=== PATIENT | male | born 1930 | race Caucasian/White ===

== ENCOUNTER → 2016-06-20 | Outpatient (CLI) | payer MEDICARE, OTHER ==
--- NOTE | 2016-06-20 11:00 | CT ---
EXAM DESCRIPTION: Chest w/o Contrast CLINICAL HISTORY: SOLITARY NODULE OF LUNG COMPARISON: None. TECHNIQUE: Non contrast multidetector CT imaging of the chest. Multiplanar reconstructions were provided. FINDINGS: The inflammatory changes seen within the left lower lobe have resolved with only minimal scarring seen on today's exam. No new suspicious findings. No pleural disease noted. Cardiomegaly again noted with extensive coronary artery disease. Pacing device visualized. The left atrium is enlarged suggesting left heart dysfunction. The pulmonary artery is not enlarged. The upper abdomen is unremarkable. IMPRESSION: Resolution of the inflammatory masslike findings within the left lung base when compared to prior. No follow-up is needed for these findings. There is enlargement of the left atrium which measures 7 cm in diameter. This can be seen in setting of left heart dysfunction. Electronically signed by: Marcello Zavala MD 06/20/2016 11:00 AM CDT
== END | disposition home or self-care (01) ==
LOC: CT 09:54
PROVIDERS: ATTEND Internal Medicine
DX: R91.1 Solitary pulmonary nodule (principal)

== ENCOUNTER → 2016-08-07 | Outpatient (CLI) | payer MEDICARE, OTHER | END | disposition home or self-care (01) | LOC: GMAB 10:34 | PROVIDERS: ATTEND Family Medicine | DX: Z12.5 Encounter for screening for malignant neoplasm of prostate (principal); R53.83 Other fatigue | CPT/HCPCS: 84443; G0103 ==

== ENCOUNTER → 2016-09-27 | Outpatient (CLI) | payer MEDICARE, OTHER | END | disposition home or self-care (01) | LOC: GMAB 16:42 | PROVIDERS: ATTEND Family Medicine | DX: N39.0 Urinary tract infection, site not specified (principal); G47.51 Confusional arousals ==

== ENCOUNTER 2017-02-02 11:50 | Emergency (ER) | payer MEDICARE, OTHER ==
--- NOTE | 2017-02-02 13:04 | ED.PDOC ---
History of Present Illness - General Chief Complaint: Upper Extremity Injury Stated Complaint: R shoulder pain Time Seen by Provider: 02/02/17 12:51 Source: patient, RN notes reviewed, Vital Signs reviewed, family - Exam Limitations: no limitations - History of Present Illness Initial Comments: Patient comes in with right shoulder pain since last night. There was a rattlesnake on the porch and he had the dog on a leash. The dog jerked him and he fell. has given him 6 Tylenol since last night. Also, he does not want to move his shoulder. No numbness in his fingers. Denies any other injury. Occurred: yesterday Pain - Upper Extremity: severe: Shoulder, right Method of Injury: fell Improving Factors: immobilization Worsening Factors: movement Allergies/Adverse Reactions: Allergies Atorvastatin [From Lipitor] Allergy (Verified 11/29/15 11:49) Propoxyphene [From Darvocet-N] Allergy (Verified 11/29/15 11:49) Home Medications: Ambulatory Orders Amphetamine-Dextroamphetamine [Adderall 30 mg] 30 mg PO BID 09/05/15 Atenolol [Tenormin] 25 mg PO DAILY 09/05/15 Doxazosin Mesylate [Doxazosin] 4 mg PO BEDTIME 09/05/15 Finesteride 5 mg PO DAILY 09/05/15 Fluticasone Propionate (Nasal) [Flonase] 50 mcg NA DAILY 09/05/15 Gemfibrozil 1,200 mg PO DAILY 09/05/15 Multiple Vitamins W/ Minerals [Centrum Silver Ultra Mens] 1 tab PO DAILY Namzaric 28-10 mg 1 each PO BEDTIME 09/06/15 Valsartan [Diovan] 40 mg PO DAILY 11/02/15 Warfarin Sodium 7.5 mg PO DAILY 11/02/15 s-Gtosvclpsiie-Apgrkxgvwlaffia [Cerefolin Nac 6-2-600 mg] 1 tab PO DAILY Pantoprazole Tablet [Protonix] 40 mg PO ACBK 11/29/15 Review of Systems - Review of Systems Constitutional: States: no symptoms reported Respiratory: States: no symptoms reported Cardiology: States: no symptoms reported Musculoskeletal: States: see HPI, joint pain - R shoulder Skin: States: no symptoms reported Neurological: States: no symptoms reported. Denies: numbness, paresthesia, tingling All other Systems: No Change from Baseline Past Medical History (General) - Patient Medical History Hx Stroke: No Hx Dementia: Yes Hx Asthma: No Hx of COPD: No Hx Cardiac Disorders: Yes - Atrial fib Hx Congestive Heart Failure: No Hx Pacemaker: Yes Hx Hypertension: Yes Hx Thyroid Disease: No Hx Diabetes: No Hx Gastroesophageal Reflux: Yes Hx Renal Disease: No Hx Cancer: No Hx of HIV: No Hx Hepatitis C: No Hx MRSA: No - Vaccination History Hx Tetanus, Diphtheria Vaccination: No Hx Influenza Vaccination: Yes Hx Pneumococcal Vaccination: Yes - Social History Hx Tobacco Use: No Hx Chewing Tobacco Use: No Hx Alcohol Use: No Hx Substance Use: No Hx Substance Use Treatment: No Hx Depression: No Hx Physical Abuse: No Hx Emotional Abuse: No Hx Suspected Abuse: No Family Medical History - Family History Mother Family History: No Known Father Living Status: Age at (years of age): 56 Cause of : [place] Brother Living Status: Age at (years of age): 56 Cause of : [place] Physical Exam - Physical Exam General Appearance: Alert, Comfortable, No apparent distress, Well Developed, Well Groomed, Well Hydrated, Well Nourished Cardiovascular/Respiratory: no respiratory distress Shoulder Exam: asymmetry, bone tenderness, deformity - R shoulder - appears dislocated, limited ROM, pain Elbow/Forearm Exam: normal inspection, non-tender, no evidence of injury, normal ROM Wrist Exam: normal inspection, non-tender, no evidence of injury, normal ROM Hand Exam: non-tender, no evidence of injury, normal ROM, swelling - R hand - fingers Neuro/Tendon: normal sensation, normal motor functions, normal tendon functions , no evidence tendon injury Mental Status: alert, oriented x 3 Skin Exam: normal color, warm/dry Progress - Progress Progress: 02/02/17 16:00 Patient is awake and ready to go home No further shoulder pain Post reduction X-ray shows good location, no fracture. - EKG/XRAY/CT XRAY: R Shoulder: Anterior, inferior dislocation per Rad - Additional EKG/XRAY/Consults XRAY #2: R shoulder: post reduction - good alignment, no fracture per Rad Procedures - Joint Reduction right shoulder Conscious Sedation: Yes - TOY DESIGNER came and provided sedation Reduction Attempts: 2 Pre-Procedure NV Exam: Yes - normal Post Joint Reduction Film: joint reduced Progress: Patient is slowly waking up. Reports his shoulder feels much better. Placed in Sling Departure - Departure Clinical Impression: Dislocation of shoulder, anterior, right, closed Qualifiers: Encounter type: initial encounter Qualified Code(s): S43.014A - Anterior dislocation of right humerus, initial encounter Time of Disposition: 16:02 Disposition: Discharge to Home or Self Care Condition: Good Departure Forms: ED Discharge - Pt. Copy, Patient Portal Self Enrollment Instructions: DI for Shoulder Dislocation Diet: resume usual diet Activity: no pushing/pulling with affected limb Referrals: Morgan Pan MD [Primary Care Provider] - 1-2 Weeks Home Medications: Ambulatory Orders Amphetamine-Dextroamphetamine [Adderall 30 mg] 30 mg PO BID 09/05/15 Atenolol [Tenormin] 25 mg PO DAILY 09/05/15 Doxazosin Mesylate [Doxazosin] 4 mg PO BEDTIME 09/05/15 Finesteride 5 mg PO DAILY 09/05/15 Fluticasone Propionate (Nasal) [Flonase] 50 mcg NA DAILY 09/05/15 Gemfibrozil 1,200 mg PO DAILY 09/05/15 Multiple Vitamins W/ Minerals [Centrum Silver Ultra Mens] 1 tab PO DAILY Namzaric 28-10 mg 1 each PO BEDTIME 09/06/15 Valsartan [Diovan] 40 mg PO DAILY 11/02/15 Warfarin Sodium 7.5 mg PO DAILY 11/02/15 [id number]-Oryyrhoopudc-Tqsrypqildlimdi [Cerefolin Nac 6-2-600 mg] 1 tab PO DAILY Pantoprazole Tablet [Protonix] 40 mg PO ACBK 11/29/15
[2017-02-02 13:10] VITALS: TEMP 97.1
--- NOTE | 2017-02-02 13:15 | RAD ---
EXAM DESCRIPTION: Shoulder,Right 2 or More Views CLINICAL HISTORY: Pain s/p fall last night COMPARISON: None. IMPRESSION: 2 views of the right shoulder show anterior, inferior dislocation of the humeral head from the glenohumeral joint. No obvious fracture is identified although there is limited movement between internal and external rotation views. Recommend follow-up imaging post reduction. Left subclavian single lead transvenous cardiac pacemaker is partly visualized. Osseous structures are diffusely osteopenic. Electronically signed by: Bola Shaver MD 02/02/2017 1:14 PM CDT
[2017-02-02] MEDS ORDERED: HYDROmorphone HCL INJ 2 MG/ML VIAL IV ONE (13:40)
[2017-02-02] MEDS ORDERED: PROPOFOL 200 MG/20 ML VIAL IV ONE (14:40)
[2017-02-02] MEDS ORDERED: MIDAZOLAM INJ 2 MG/2 ML VIAL IV ONE (14:40)
[2017-02-02] MEDS ORDERED: fentaNYL CITRATE INJ 50 MCG/ML AMP IV ONE (14:40)
--- NOTE | 2017-02-02 14:59 | RAD ---
EXAM DESCRIPTION: Shoulder,Right 2 or More Views CLINICAL HISTORY: post-reduction COMPARISON: February 02, 2017 at 1259 hours. IMPRESSION: 2 views of the right shoulder were acquired status post glenohumeral joint reduction. No acute fractures demonstrated. Age-indeterminate Hill-Sachs deformity suspected posterior aspect of the proximal humeral head. The glenohumeral joint appears in near-anatomic alignment. No other significant change. Electronically signed by: Sánchez Ceballos MD 02/02/2017 2:57 PM CDT
[2017-02-02 15:16] VITALS: O2SAT 98
[2017-02-02 16:29] VITALS: BP 119/76
== END 2017-02-02 16:29 | disposition home or self-care (01) ==
LOC: ER 11:50
DX: S43.014A Anterior dislocation of right humerus, initial encounter (principal); I48.91 Unspecified atrial fibrillation; I10 Essential (primary) hypertension; F03.90 Unspecified dementia, unspecified severity, without behavioral disturbance, psychotic disturbance, mood disturbance, and anxiety; Z95.0 Presence of cardiac pacemaker; Z79.01 Long term (current) use of anticoagulants; Z79.899 Other long term (current) drug therapy; Z88.8 Allergy status to other drugs, medicaments and biological substances
CPT/HCPCS: 23650; 73030; 96374; 99156; 99285; J1170; J2250; J3010; J3490

== ENCOUNTER 2017-02-07 18:01 | Observation (INO) | payer MEDICARE, OTHER ==
[2017-02-07] MEDS ORDERED: PHYTONADIONE INJ 10 MG/ML AMP IM ONE (18:49)
[2017-02-07] MEDS ORDERED: SODIUM CHLORIDE 0.9% 1000ML 1,000 ML IVS ONE (19:11)
--- NOTE | 2017-02-07 19:25 | CT ---
EXAM: Head CLINICAL INDICATION: 87-year-old female with recurrent falls. On Coumadin. COMPARISON: Noncontrast CT brain 09/05/2015. TECHNIQUE: CT brain without contrast. This exam was performed according to our departmental dose optimization program which includes use of automated exposure control, adjustment of the mA and/or kV according to patient size and/or use of iterative reconstruction technique. FINDINGS: Multifocal regions of patchy hypoattenuation are present in a subcortical and periventricular deep white matter distribution, nonspecific; however, most likely represent small vessel ischemic disease, age indeterminate. Subcentimeter focus of hypoattenuation present within the LEFT basal ganglia similar in comparison to the previous examination suggesting sequela of prior lacunar infarction. The ventricles, and sulci are enlarged compatible with underlying volume loss. The villa-white matter differentiation is preserved. There is no mass effect, midline shift, intra- or extra-axial fluid collection/acute hemorrhage. The osseous structures are unremarkable. The paranasal sinuses and mastoid air cells are clear. IMPRESSION: 1. No acute intracranial abnormalities. Nonspecific white matter change most likely small vessel ischemic disease, age indeterminate. 2. CT is insensitive for early evaluation of acute stroke. If there is clinical concern for acute ischemia, an MRI may be considered. Electronically signed by: Daily Easley MD 02/07/2017 7:24 PM [employer] Workstation: [id number]
--- NOTE | 2017-02-07 19:26 | RAD ---
EXAM: Chest,1 View CLINICAL INDICATION: 87-year-old male with recurrent falls. TECHNIQUE: Single view, AP portable chest was obtained. COMPARISON: 11/29/2015 chest radiograph. FINDINGS: Stable cardiac and mediastinal silhouette. Heart size is normal. Atherosclerotic thoracic aorta. Pacemaker device overlies and obscures portions of the the LEFT hemithorax with leads intact at the level of the battery pack, stable in course and termination. Lungs are clear without focal opacity, pneumothorax or pleural effusions. The visualized bones are within normal limits of chest radiograph technique. If there is clinical concern for bone injury, dedicated rib series or CT chest is recommended. IMPRESSION: No acute cardiopulmonary abnormalities. Electronically signed by: Daily Easley MD 02/07/2017 7:25 PM NIGHT WORKER Workstation: [id number]
--- NOTE | 2017-02-07 19:27 | RAD ---
EXAM: Hip,Right 2 Views (accession [id number]), Pelvis (accession [id number]) CLINICAL INDICATION: 87-year-old male with fall and bruising. COMPARISON: None. TECHNIQUE: Single frontal view of the pelvis and two views of the RIGHT hip were obtained in AP and lateral projection. FINDINGS: Single frontal view of the pelvis reveals degenerative change of the lower lumbar spine. Mild degenerative change of the bilateral hips with mild femoral acetabular joint space narrowing and osteophyte formation. The midline sacrum is poorly visualized secondary to overlying bowel gas. Pelvic phleboliths. RIGHT hip: There is no fracture or dislocation. The joint spaces are preserved. No soft tissue abnormalities are seen. IMPRESSION: No acute radiographic abnormality. Electronically signed by: Daily Easley MD 02/07/2017 7:26 PM [facility] Workstation: [id number]
--- NOTE | 2017-02-07 19:28 | RAD ---
EXAM: Hip,Right 2 Views (accession [id number]), Pelvis (accession [id number]) CLINICAL INDICATION: 87-year-old male with fall and bruising. COMPARISON: None. TECHNIQUE: Single frontal view of the pelvis and two views of the RIGHT hip were obtained in AP and lateral projection. FINDINGS: Single frontal view of the pelvis reveals degenerative change of the lower lumbar spine. Mild degenerative change of the bilateral hips with mild femoral acetabular joint space narrowing and osteophyte formation. The midline sacrum is poorly visualized secondary to overlying bowel gas. Pelvic phleboliths. RIGHT hip: There is no fracture or dislocation. The joint spaces are preserved. No soft tissue abnormalities are seen. IMPRESSION: No acute radiographic abnormality. Electronically signed by: Daily Easley MD 02/07/2017 7:26 PM [facility] Workstation: [id number]
--- NOTE | 2017-02-07 19:58 | ED.PDOC ---
History of Present Illness - General Chief Complaint: Trauma Stated Complaint: falling Time Seen by Provider: 02/07/17 18:02 Source: patient, family Exam Limitations: no limitations - History of Present Illness Initial Comments: the patient is an 87-year-old male presenting to the emergency room secondary to multiple falls over the last week or 2. The patient was brought in by EMS after a fall when he was trying to get to the bathroom. The patient reports being a little sore everywhere. He does have a fairly large hematoma over his right hip that appears to be at least a couple days old. He was seen here on the third of this month for a dislocated right shoulder from a fall. Upon arrival by EMS his blood pressures were in the 80s over 50s and did respond well to a 250 cc bolus. The patient does have some significant dementia and is a poor historian. The patient also takes numerous medications that can drop his blood pressure. He is not having any headache. He does not think he hit his head. He has no neck pain. He still has pain in his right shoulder from previous dislocations. He is actually moving the right hip fairly well. I see no other lacerations. He does not seem to be having any back pain at this point. He is pleasantly demented. Timing/Duration: unsure Severity: moderate Improving Factors: nothing Worsening Factors: immobilization Associated Symptoms: malaise, weakness Allergies/Adverse Reactions: Allergies Atorvastatin [From Lipitor] Allergy (Verified 02/07/17 18:25) Propoxyphene [From Darvocet-N] Allergy (Verified 02/07/17 18:25) Home Medications: Ambulatory Orders Atenolol [Tenormin] 50 mg PO DAILY 09/05/15 Doxazosin Mesylate [Doxazosin] 4 mg PO BEDTIME 09/05/15 Finesteride 5 mg PO DAILY 09/05/15 Gemfibrozil 1,200 mg PO DAILY 09/05/15 Warfarin Sodium 7.5 mg PO DAILY 11/02/15 Divalproex Sodium ER [Depakote ER] 500 mg PO BID 02/07/17 Memantine HCl [Namenda] 10 mg PO BID 02/07/17 Quetiapine Fumarate [Seroquel] 25 mg PO DAILY 02/07/17 Quetiapine Fumarate [Seroquel] 50 mg PO BEDTIME 02/07/17 l-Ljkahtohnwed-Cyksextceagvhzh [Cerefolin Nac 6-2-600 mg] 1 tab PO DAILY Review of Systems - Review of Systems Constitutional: States: malaise, weakness EENTM: States: no symptoms reported Respiratory: States: no symptoms reported Cardiology: States: no symptoms reported Gastrointestinal/Abdominal: States: no symptoms reported Genitourinary: States: no symptoms reported Musculoskeletal: States: joint pain, muscle stiffness Skin: States: see HPI - bruised bruising Neurological: States: see HPI Endocrine: States: no symptoms reported Hematologic/Lymphatic: States: easy bruising All other Systems: No Change from Baseline Past Medical History (General) - Patient Medical History Hx Stroke: No Hx Dementia: Yes Hx Asthma: No Hx of COPD: No Hx Cardiac Disorders: Yes - Atrial fib Hx Congestive Heart Failure: No Hx Pacemaker: Yes Hx Hypertension: Yes Hx Thyroid Disease: No Hx Diabetes: No Hx Gastroesophageal Reflux: Yes Hx Renal Disease: No Hx Cancer: No Hx of HIV: No Hx Hepatitis C: No Hx MRSA: No - Vaccination History Hx Tetanus, Diphtheria Vaccination: No Hx Influenza Vaccination: Yes Hx Pneumococcal Vaccination: Yes Immunizations Up to Date: No - Social History Hx Tobacco Use: No Hx Chewing Tobacco Use: No Hx Alcohol Use: No Hx Substance Use: No Hx Substance Use Treatment: No Hx Depression: No Hx Physical Abuse: No Hx Emotional Abuse: No Hx Suspected Abuse: No Family Medical History - Family History Mother Family History: No Known Father Living Status: Age at (years of age): 56 Cause of : [place] Brother Living Status: Age at (years of age): 56 Cause of : [place] Physical Exam - Physical Exam General Appearance: Alert, Comfortable, No apparent distress Eye Exam: bilateral normal Ears, Nose, Throat: hearing grossly normal, normal ENT inspection, normal pharynx Neck: full range of motion, supple Respiratory: lungs clear, normal breath sounds, no respiratory distress, no accessory muscle use Cardiovascular/Chest: normal peripheral pulses, no edema, other - regular rate. A pacemaker rhythm on EKG. Peripheral Pulses: radial,right: 2+, radial,left: 2+, dorsalis pedis,right: 2+, dorsalis pedis,left: 2+ Gastrointestinal/Abdominal: non tender, soft Rectal Exam: deferred Back Exam: no CVA tenderness, no vertebral tenderness Extremity: normal range of motion, no pedal edema, no calf tenderness, normal capillary refill, other - significant bruising over the right hip. Discomfort with movement of the right shoulder. There is some swelling around the right shoulder as well. Neurologic: manager long term care II-XII nml as tested, alert, normal mood/affect - ryan pleasant Skin Exam: normal color - ith the exceptions as above Comments: Vital Signs - 24 hr 02/07/17 02/07/17 18:12 19:01 Temperature 97.9 F Pulse Rate [ 70 70 MONITOR] Respiratory 20 16 Rate Blood Pressure 101/56 112/52 [Left Arm] O2 Sat by Pulse 99 97 Oximetry Progress - Progress Progress: 02/07/17 20:00 the patient is an 87-year-old male with multiple recent falls likely related to hypotension which is possibly contributed to by multiple medications. The patient was given IV fluid bolus which has helped his blood pressures. The patient does have significant soreness from his previous falls. He will be admitted here overnight for recheck of his INR as well as H&H in the morning. He is supratherapeutic on his INR and did receive vitamin K. He is to be bedbound tonight. Physical therapy can assess him in the morning for functionality. His medications can be reviewed to see which medications are most necessary as multiple indications are likely contributing to his falls. Admit for further monitoring. I'm going to go ahead and repeat his shoulder x- ray to make sure he did not injure it again with a fall today. - Results/Orders Results/Orders: Laboratory Tests 02/07/17 02/07/17 02/07/17 18:23 18:23 18:23 WBC 5.6 RBC 3.82 L Hgb 11.3 L Hct 33.0 L MCV 86.3 MCH 29.5 MCHC 34.2 RDW 15.4 H Plt Count 140 MPV 8.5 Absolute Neuts (auto) 3.80 Absolute Lymphs (auto) 0.90 L Absolute Monos (auto) 0.60 Absolute Eos (auto) 0.30 Absolute Basos (auto) 0.00 Neutrophils % 67.3 Lymphocytes % 15.9 L Monocytes % 10.1 H Eosinophils % 6.0 H Basophils % 0.7 PT 102.6 H* INR 9.280 H* PTT (SP) 68.8 H Sodium 136 Potassium 4.4 Chloride 102 Carbon Dioxide 29 Anion Gap 9.4 L BUN 23 H Creatinine 1.23 BUN/Creatinine Ratio 18.7 Random Glucose 106 H Serum Osmolality 276.1 Calcium 8.7 Magnesium 2.0 Total Bilirubin 0.8 AST 22 ALT 15 Alkaline Phosphatase 64 Creatine Kinase 54 CK-MB (CK-2) 1.1 CK-MB (CK-2) % Not Reportable Troponin I 0.02 B-Natriuretic Peptide 325.0 H* Serum Total Protein 5.8 L Albumin 3.1 L Globulin 2.7 Albumin/Globulin Ratio 1.1 TSH 2.89 x-ray of the chest, right hip, pelvis show no evidence of acute fracture or dislocation. CT scan of the head shows no evidence of trauma or intracranial hemorrhage. EKG shows a ventricularly paced rhythm at 70 bpm. - EKG/XRAY/CT CT Ordered: No Departure - Departure Clinical Impression: Recurrent falls while walking, Hypercoagulable state, secondary Hypotension Qualifiers: Hypotension type: unspecified hypotension type Qualified Code(s): I95.9 - Hypotension, unspecified Disposition: Admit Patient Referrals: Morgan Pan MD [Primary Care Provider] - 1-2 Weeks Home Medications: Ambulatory Orders Atenolol [Tenormin] 50 mg PO DAILY 09/05/15 Doxazosin Mesylate [Doxazosin] 4 mg PO BEDTIME 09/05/15 Finesteride 5 mg PO DAILY 09/05/15 Gemfibrozil 1,200 mg PO DAILY 09/05/15 Warfarin Sodium 7.5 mg PO DAILY 11/02/15 Divalproex Sodium ER [Depakote ER] 500 mg PO BID 02/07/17 Memantine HCl [Namenda] 10 mg PO BID 02/07/17 Quetiapine Fumarate [Seroquel] 25 mg PO DAILY 02/07/17 Quetiapine Fumarate [Seroquel] 50 mg PO BEDTIME 02/07/17 z-Pddpzozbydoo-Rlqbfteeaosmhnm [Cerefolin Nac 6-2-600 mg] 1 tab PO DAILY Decision To Admit - Decistion To Admit Decision to Admit Reason: Accidental Injury Decision to Admit Date: 02/07/17 Decision to Admit Time: 20:02
--- NOTE | 2017-02-07 20:16 | HP ---
SUPERVISING PHYSICIAN: Darinel Zapata MD CHIEF COMPLAINT: Multiple falls after trauma. HISTORY OF PRESENT ILLNESS: This is an 87-year-old male patient who lives in [place], [place]. He was outside on Sunday evening with his and they found a rattlesnake. He was trying to hold his [place] back while they were attempting to kill the snake and the [place] caused him to fall onto his right shoulder and his right hip. He was in quite a bit of pain that night and the pain became so intense that on Sunday he came to the Emergency Room. He had a right shoulder separation. He was appropriately sedated and had a reduction done in the Emergency Room and sent home. Since Sunday evening, his said he has had multiple episodes of becoming quite weak when he stands up and she can remember about 3 incidences. He has never lost consciousness and he has never actually fallen because she has been assisting him up, but he has these syncopal type episodes, so she brought him to the Emergency Room. In the Emergency Room, a head CT was performed and showed no acute intracranial abnormalities and some small vessel ischemic disease. He had a hip x-ray that showed no acute radiographic abnormalities. His chest x-ray showed no acute cardiopulmonary abnormalities. His pelvic x-ray showed no acute radiographic abnormalities. His right shoulder x-ray showed no acute fracture or dislocation , but mild degenerative changes in the glenohumeral and acromioclavicular joints. His lab work was done and WBCs were 5.6 with hemoglobin 11.3, hematocrit 33. Platelet count 140. Chemistries were basically within normal limits with the exception of his BUN was slightly high at 23 and glucose was 106. BNP 325. PT was 102.6 with an INR of 9.28. He was given 10 mg of vitamin K in the Emergency Room. He was also found to have a very large hematoma that was probably from Sunday night on his right lateral hip that started at the mid lateral hip all the way to mid lateral thigh. I was called for admission. PAST MEDICAL HISTORY: 1. Atrial fibrillation. 2. Hyperlipidemia. 3. Colonic polyps. 4. Osteoarthritis. 5. Dementia. PAST SURGICAL HISTORY: 1. Right knee replacement. 2. Colonoscopy. 3. Pacemaker insertion. 4. Hernia repair times 2. OUTPATIENT MEDICATIONS: Per the EMR and awaiting verification. ALLERGIES: DARVOCET, LIPITOR. FAMILY HISTORY: His father of a myocardial infarction at age 56. His mother at age 75 of unknown causes. His sisters have coronary artery disease. SOCIAL HISTORY: He is . He has three children. He lives in [place]. He denies any ETOH, tobacco or illicit drug use. REVIEW OF SYSTEMS: GENERAL: Negative for fever, fatigue or weight changes. HEENT: Negative for sinus symptoms, ear pain, vision changes or sore throat. RESPIRATORY: Negative for wheezing, coughing or shortness of breath. CARDIAC: Negative for chest pain, palpitations or tachycardia. GASTROINTESTINAL: Negative for nausea, vomiting, diarrhea, constipation or abdominal pain. GENITOURINARY: Negative for hematuria, dysuria or polyuria. MUSCULOSKELETAL: As per history of present illness. NEUROLOGIC: Positive for weakness and syncope. Negative for headache or seizures. PHYSICAL EXAMINATION: VITAL SIGNS: Afebrile. Heart rate 70. Blood pressure 101/56. Respiratory rate 20. O2 saturation 99% on room air. GENERAL: This is an 87-year-old male patient who is lying in his hospital bed. He is in no acute distress. HEENT: Normocephalic, atraumatic. Pupils are equal and reactive. Oropharynx is clear. Oral mucous membranes are moist. NECK: Supple without mass. No discernible jugular venous distention. RESPIRATORY: Clear to auscultation bilaterally. CARDIOVASCULAR: Slightly irregular rhythm, regular rate. ABDOMEN: Soft, nondistended, nontender. Bowel sounds are positive. EXTREMITIES: He has a large hematoma to the right lateral thigh as well as a yellowish ecchymotic area to the right upper arm. Bilateral pedal pulses are palpable at +2 and there is no pedal edema. NEUROLOGIC: Awake, alert and oriented times three, although he does have some dementia and his says he is at baseline. LABORATORY: Labs and films are as per history of present illness. ASSESSMENT: 1. Recent same level fall with right shoulder separation and subsequent reduction in the Emergency Room on Sunday. 2. Three syncopal episodes since initial fall with no loss of consciousness of mental status changes. 3. Supratherapeutic INR. 4. Dementia. 5. History of atrial fibrillation. 6. Hyperlipidemia. PLAN: We will place the patient in observation. I will repeat labs in the morning. He received 10 mg of vitamin K in the Emergency Room, so I will hold his Coumadin and we will recheck his PT/INR in the morning. He is on the shelter monitor. We may need to adjust some of his medications as he gets 100 mg of Seroquel at night as well as Depakote ER 500 mg b.i.d. He gets the Depakote for his dementia. Dr. Moran is his neurologist in [place]. I have restarted part of his medications, but again we may need to adjust some of those as they may be contributing to his falls, although he did not have falls prior to the initial fall on Sunday. His BNP is slightly elevated, but his lungs are clear and there is no shortness of breath. He may have some slight dehydration because his BUN is slightly elevated, but at this point I will hold on giving him any fluids. I have also consulted physical therapy to make sure he is safe to go home and also to evaluate the need for outpatient physical therapy due to his recent falls. He is on Protonix for ulcer prophylaxis and SCDs for DVT prophylaxis. Hopefully, he can be discharged in the day or so with close followup with Dr. Moran as well as Dr. Pan. Dr. Zapata is the collaborating physician and available for consultation. #[id number] [facility]
[2017-02-07] MEDS ORDERED: SODIUM CHLORIDE 0.9% (FLUSH) 10 ML SYG IV PRN (20:50)
[2017-02-07] MEDS ORDERED: IV SET AND CAP CHANGE INJ INJ SCH (21:00)
--- NOTE | 2017-02-07 21:03 | PCM.CORE ---
Physician DVT/VTE - Contraindications Medication Contraindication: Medical Contraindication - Nurse DVT Assessment & Total Each Risk Factor Represents 3 Points: Age over 75 years Each Risk Factor Represents 1 Point: Medical PT at Bed Rest DVT Assessment Score: 4 - 5 or more Very High Risk Treatments: Early Ambulation *, Sequential Compression Device
--- NOTE | 2017-02-07 21:08 | RAD ---
Examination: XR SHOULDER 2 OR MORE VIEWS dated 02/07/2017 8:03 PM HAND LAUNDERER History: recurrent fall after recent dislocation/reduction Comparison: 02/02/2017 Technique: Two views of the right shoulder FINDINGS AND IMPRESSION: There is no acute fracture or dislocation. Mild degenerative changes of the acromioclavicular and glenohumeral joints. Right apical opacification is positional/technical, additionally right lung apex is normal on 02/02/2017 exam. Electronically signed by: Spenser Small MD 02/07/2017 9:06 PM HAND LAUNDERER
[2017-02-07] MEDS ORDERED: PANTOPRAZOLE SODIUM IV 40 MG VIAL IV SCH (21:30)
[2017-02-07] MEDS ORDERED: QUEtiapine FUMARATE 25 MG TAB PO ONE (22:15)
[2017-02-07] MEDS: MEMANTINE 10 MG TAB PO SCH (22:23)
[2017-02-07] MEDS: ACETAMINOPHEN 325 MG TAB PO PRN (22:32)
[2017-02-08] MEDS ORDERED: DOXAZOSIN MESYLATE 2 MG TAB ONE (08:57)
[2017-02-08] MEDS ORDERED: FINASTERIDE 5 MG TAB ONE (08:57)
[2017-02-08] MEDS ORDERED: FINASTERIDE 5 MG TAB PO SCH (09:00)
[2017-02-08] MEDS ORDERED: DOXAZOSIN MESYLATE 2 MG TAB PO SCH (09:00)
[2017-02-08] MEDS: MEMANTINE 10 MG TAB PO SCH (09:17)
[2017-02-08 12:40] VITALS: TEMP 96.7
[2017-02-08 15:26] VITALS: BP 96/57
[2017-02-08] MEDS ORDERED: PANTOPRAZOLE SODIUM TAB 40 MG PO SCH (16:30)
[2017-02-08] MEDS ORDERED: INFLUENZA VIRUS VACC (ADULT) 0.5 ML SYG IM ONE ×2 (17:05→17:13)
[2017-02-08 17:54] VITALS: O2SAT 92
[2017-02-08] MEDS: ACETAMINOPHEN 325 MG TAB PO PRN (17:56)
[2017-02-08] MEDS ORDERED: GEMFIBROZIL 600 MG TAB PO SCH (21:00)
[2017-02-08] MEDS ORDERED: DIVALPROEX SODIUM ER 500 MG TAB PO SCH (21:00)
[2017-02-08] MEDS ORDERED: SODIUM CHLORIDE 0.9% (FLUSH) 10 ML SYG IV SCH (21:00)
[2017-02-08] MEDS ORDERED: QUEtiapine FUMARATE 100 MG TAB PO SCH (21:00)
[2017-02-09] MEDS ORDERED: ATENOLOL 25 MG TAB PO SCH (09:00)
== END 2017-02-08 17:58 ==
LOC: ER 18:01 → MS 20:15
PROVIDERS: ADMIT Nurse Practitioner Acute Care; ATTEND Nurse Practitioner Family
DX: R55 Syncope and collapse (principal); R79.1 Abnormal coagulation profile; F03.90 Unspecified dementia, unspecified severity, without behavioral disturbance, psychotic disturbance, mood disturbance, and anxiety; I48.91 Unspecified atrial fibrillation; E78.5 Hyperlipidemia, unspecified; R53.1 Weakness; S43.004D Unspecified dislocation of right shoulder joint, subsequent encounter; W18.39XD Other fall on same level, subsequent encounter; M25.551 Pain in right hip; M19.90 Unspecified osteoarthritis, unspecified site; Z23 Encounter for immunization; Z95.0 Presence of cardiac pacemaker; Z79.01 Long term (current) use of anticoagulants; Z79.899 Other long term (current) drug therapy; Z88.5 Allergy status to narcotic agent; Z88.8 Allergy status to other drugs, medicaments and biological substances; Z96.651 Presence of right artificial knee joint; Z82.49 Family history of ischemic heart disease and other diseases of the circulatory system; W18.39XA Other fall on same level, initial encounter; Y92.008 Other place in unspecified non-institutional (private) residence as the place of occurrence of the external cause
CPT/HCPCS: 36415 ×2; 70450; 71010; 72170; 73030; 73502; 80053 ×2; 81001; 82550; 82553; 83735; 83880; 84443; 84484; 85025 ×2; 85610 ×2; 85730; 90674; 93005; 94760 ×5; 96361; 96372; 96374; 97162; 97530; 99284; G0008; G8978; G8979; G8980; J3430; J7030

== ENCOUNTER → 2017-07-02 | Outpatient (CLI) | payer MEDICARE, OTHER ==
--- NOTE | 2017-07-02 11:16 | RAD ---
EXAM DESCRIPTION: Knee,Left Complete CLINICAL HISTORY: 87 years, Male, PAIN COMPARISON: None TECHNIQUE: Four views of the left knee FINDINGS: Osteopenia with severe advanced bone on bone degenerative joint disease medial joint compartment of the left knee is present. Very small amount of joint fluid is evident on the lateral view. The lateral joint compartment and patellofemoral compartment are better preserved. Vascular calcification is noted. No fracture or dislocation evident. IMPRESSION: 1. 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 Electronically signed by: Darinel Guerra MD 07/02/2017 11:14 AM CDT
--- NOTE | 2017-07-02 11:19 | RAD ---
EXAM DESCRIPTION: Pelvis CLINICAL HISTORY: 87 years Male, PAIN COMPARISON: February 07, 2017 FINDINGS: The bony pelvis appears intact with mild degenerative arthropathy involving each hip with preserved joint space. No fracture or dislocation is seen. No occult fracture of the right or left hip or disruption of the SI joints noted. Symphysis pubis is intact. Bilateral pelvic phleboliths and a small normal bladder are noted. IMPRESSION: Stable pelvis with no acute injury or interval change. Electronically signed by: Darinel Guerra MD 07/02/2017 11:17 AM CDT
== END ==
LOC: RAD 08:39
PROVIDERS: ATTEND Orthopaedic Surgery
DX: M25.562 Pain in left knee (principal); M25.552 Pain in left hip

== ENCOUNTER 2017-12-29 20:33 | Inpatient (IN) | payer MEDICARE, OTHER ==
[2017-12-29] MEDS ORDERED: SODIUM CHLORIDE 0.9% 1000ML 1,000 ML IVS ONE (20:49)
[2017-12-29] MEDS ORDERED: ACETAMINOPHEN 500 MG TAB PO ONE (20:49)
--- NOTE | 2017-12-29 20:57 | ED.PDOC ---
History of Present Illness - General Chief Complaint: Fever Stated Complaint: fever since yesterday Time Seen by Provider: 12/29/17 20:51 Source: RN notes reviewed, family Exam Limitations: physical impairment - patient has dementia history per and daughter - History of Present Illness Initial Comments: patient comes in today for fever to 101.5 yesterday and today 103.4. Patient has dementia and so although he is normally confused he appears more so over the past 24 hours. He's had no cough, congestion, and denies sore throat. However, on the right over here noted that he did have a hoarse gravelly voice. Patient has no nausea, emesis, or abdominal pain. He denies any dysuria. His does state that he has not been drinking well and she often has a difficult time keeping him from becoming dehydrated. Patient is on eloquent S for atrial fibrillation and so often does not take NSAIDs. However, they did give him 1 Advil last night for his fever. No one has been sick around him. He has not yet received his flu shot for the year. Patient is up- to-date on his pneumonia vaccine. Patient has a past medical history of Lewy body dementia, atrial fibrillation, and hypertension. Patient denies headache, neck pain, or vision change. He can answer questions but is keeping his eyes closed in the bed and seems ill. Timing/Duration: yesterday Fever Severity/Quality: greater than 102 F Fever Therapy FARM HELPER: Ibuprofen - 200 mg last night Associated Symptoms: confusion, weakness Review of Systems - Review of Systems Review of Systems: 12/29/17 20:57 per , patient denies all pain and difficulty Constitutional: States: chills, fever, malaise EENTM: States: no symptoms reported. Denies: eye pain, ear pain, nose pain, nose congestion, throat pain Respiratory: States: no symptoms reported. Denies: cough, short of breath, wheezing Cardiology: States: no symptoms reported. Denies: chest pain, edema, palpitations Gastrointestinal/Abdominal: States: no symptoms reported. Denies: abdominal pain, diarrhea, nausea, vomiting Genitourinary: States: no symptoms reported. Denies: discharge, dysuria, frequency Musculoskeletal: States: no symptoms reported Skin: States: no symptoms reported Neurological: States: see HPI Past Medical History (General) - Patient Medical History Hx Seizures: No Hx Stroke: No Hx Dementia: Yes Hx Asthma: No Hx of COPD: No Hx Cardiac Disorders: Yes - Atrial fib Hx Congestive Heart Failure: No Hx Pacemaker: Yes Hx Hypertension: No Hx Thyroid Disease: No Hx Diabetes: No Hx Gastroesophageal Reflux: Yes Hx Renal Disease: No Hx Cancer: No Hx of HIV: No Hx Hepatitis C: No Hx MRSA: No - Vaccination History Hx Tetanus, Diphtheria Vaccination: No Hx Influenza Vaccination: Yes Hx Pneumococcal Vaccination: Yes - Social History Hx Tobacco Use: No Hx Chewing Tobacco Use: No Hx Alcohol Use: No Hx Substance Use: No Hx Substance Use Treatment: No Hx Depression: No Hx Physical Abuse: No Hx Emotional Abuse: No Hx Suspected Abuse: No Family Medical History - Family History Mother Family History: No Known Father Living Status: Age at (years of age): 56 Cause of : [place] Brother Living Status: Age at (years of age): 56 Cause of : [place] Physical Exam - Physical Exam General Appearance: Comfortable, Frail, Ill Appearing Eye Exam: bilateral normal ENT Exam: normal ENT inspection, hearing grossly normal, TMs normal, pharynx normal Neck: non-tender, full range of motion, supple, normal inspection Respiratory: chest non-tender, lungs clear, normal breath sounds, no respiratory distress Cardiovascular/Chest: normal peripheral pulses, regular rate, rhythm, no edema, no gallop, no murmur Gastrointestinal/Abdominal: normal bowel sounds, non tender, soft Extremity: normal range of motion, non-tender, normal inspection 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 All workup thus far is fairly normal with the exception of some possible atelectasis on chest x-ray. Although he is asymptomatic he does have advanced dementia and that doesn't out the pitcher considerably. We've talked to his family and we decided to have him admitted 12/29/17 21:55 - Results/Orders Results/Orders: 12/29/17 20:46 BLOOD CULTURE Stat 12/29/17 20:52 STREP A SCREEN CULTURE Stat 12/29/17 21:20 Catheter:Straight .ONCE 12/29/17 21:47 cefTRIAXone SODIUM [Rocephin] 2 gm Sodium Chl 0.9% 100Ml Mini-Bag [NS 100ml MINI-BAG+] 100 ml IVPB ONCE Laboratory Results WBC 6.9 K/mm3 (4.8-10.8) 12/29/17 20:46 RBC 5.32 M/mm3 (4.70-6.10) 12/29/17 20:46 Hgb 15.9 gm/dL (14.0-18.0) 12/29/17 20:46 Hct 47.3 % (42.0-52.0) 12/29/17 20:46 MCV 88.9 fl (80.0-94.0) 12/29/17 20:46 MCH 29.8 pg (27.0-31.0) 12/29/17 20:46 MCHC 33.7 g/dL (33.0-37.0) 12/29/17 20:46 RDW 15.1 % (11.5-14.5) H 12/29/17 20:46 Plt Count 107 K/mm3 (130-400) L 12/29/17 20:46 MPV 9.0 fl (7.40-10.4) 12/29/17 20:46 Absolute Neuts (auto) 5.60 K/uL (1.8-6.8) 12/29/17 20:46 Absolute Lymphs (auto) 0.60 K/uL (1.0-3.4) L 12/29/17 20:46 Absolute Monos (auto) 0.60 K/uL (0.2-0.8) 12/29/17 20:46 Absolute Eos (auto) 0.00 K/uL (0.0-0.4) 12/29/17 20:46 Absolute Basos (auto) 0.00 K/uL (0.0-0.1) 12/29/17 20:46 Neutrophils % 81.3 % (42.0-78.0) H 12/29/17 20:46 Lymphocytes % 8.8 % (20.0-50.0) L 12/29/17 20:46 Monocytes % 8.7 % (2.0-9.0) 12/29/17 20:46 Eosinophils % 0.5 % (1.0-5.0) L 12/29/17 20:46 Basophils % 0.7 % (0.0-2.0) 12/29/17 20:46 Sodium 139 mmol/L (135-145) 12/29/17 20:46 Potassium 4.2 mmol/L (3.6-5.0) 12/29/17 20:46 Chloride 103 mmol/L (101-111) 12/29/17 20:46 Carbon Dioxide 27 mmol/L (21-31) 12/29/17 20:46 Anion Gap 13.2 (12-18) 12/29/17 20:46 BUN 32 mg/dL (7-18) H 12/29/17 20:46 Creatinine 1.42 mg/dL (0.6-1.3) H 12/29/17 20:46 BUN/Creatinine Ratio 22.5 (10-20) H 12/29/17 20:46 Random Glucose 125 mg/dL (70-105) H 12/29/17 20:46 Serum Osmolality 285.9 mOsm/L (275-295) 12/29/17 20:46 Lactic Acid 1.5 mmol/L (0.5-2.2) 12/29/17 20:46 Calcium 9.3 mg/dL (8.4-10.2) 12/29/17 20:46 Total Bilirubin 1.4 mg/dL (0.2-1.0) H 12/29/17 20:46 AST 32 IU/L (10-42) 12/29/17 20:46 ALT 23 IU/L (10-60) 12/29/17 20:46 Alkaline Phosphatase 69 IU/L (42-121) 12/29/17 20:46 Serum Total Protein 7.4 gm/dL (6.4-8.2) 12/29/17 20:46 Albumin 4.0 g/dl (3.2-5.5) 12/29/17 20:46 Globulin 3.4 gm/dL (2.3-3.5) 12/29/17 20:46 Albumin/Globulin Ratio 1.2 (1.1-1.9) 12/29/17 20:46 Urine Color Yellow (Yellow) 12/29/17 21:17 Urine Appearance Clear (Clear) 12/29/17 21:17 Urine pH 5.5 (4.5-7.8) 12/29/17 21:17 Ur Specific [place] 1.020 (1.005-1.030) 12/29/17 21:17 Urine Protein Negative mg/dL 12/29/17 21:17 Urine Glucose (UA) Negative mg/dL (Negative) 12/29/17 21:17 Urine Ketones Trace mg/dL (NEGATIVE) 12/29/17 21:17 Urine Blood Trace-intact (Negative) H 12/29/17 21:17 Urine Nitrite Negative 12/29/17 21:17 Urine Bilirubin Negative (NEGATIVE) 12/29/17 21:17 Urine Urobilinogen 1.0 mg/dL (0.2-1.0) 12/29/17 21:17 Ur Leukocyte Esterase Negative (Negative) 12/29/17 21:17 Urine RBC 5-10 /hpf H 12/29/17 21:17 Urine WBC 0-1 /hpf 12/29/17 21:17 Ur Epithelial Cells 0 /hpf 12/29/17 21:17 Urine Bacteria 0 12/29/17 21:17 Group A Strep Rapid Negative (NEGATIVE) 12/29/17 20:52 Departure - Departure Clinical Impression: Fever in adult, Dehydration Disposition: Admit Patient Condition: Fair Departure Forms: ED Discharge - Pt. Copy, Patient Portal Self Enrollment Referrals: Morgan Pan MD [Primary Care Provider] - 1-2 Weeks Home Medications: Ambulatory Orders Atenolol [Tenormin] 50 mg PO DAILY 09/05/15 Doxazosin Mesylate [Doxazosin] 4 mg PO DAILY 09/05/15 Finesteride 5 mg PO DAILY 09/05/15 Gemfibrozil 1,200 mg PO BEDTIME 09/05/15 Divalproex Sodium ER [Depakote ER] 500 mg PO BID 02/07/17 Memantine HCl [Namenda] 10 mg PO BID 02/07/17 Quetiapine Fumarate [Seroquel] 100 mg PO BEDTIME 02/07/17 [id number] [Cerefolin Nac 6-2-600 mg] 1 tab PO DAILY Warfarin Sodium 5 mg PO TH #0 02/08/17 Warfarin Sodium 7.5 mg PO SUMOTUWEFRSA #0 02/08/17
--- NOTE | 2017-12-29 21:35 | RAD ---
EXAM DESCRIPTION: Chest,1 View CLINICAL HISTORY: fever, generalized weakness COMPARISON: Chest radiograph dated February 07, 2017 FINDINGS: Single upright portable frontal view the chest. Redemonstration of single lead left chest cardiac pacemaker in position. Calcific atherosclerosis of the thoracic aorta. Cardiac silhouette shows cardiomegaly. Pulmonary vascularity is within normal limits. Subtle hazy opacities in the bilateral lung bases, right greater than left, may represent atelectasis versus infiltrate. Costophrenic angles are sharp. No pneumothorax. Visualized osseous structures show no destructive lesions. IMPRESSION: 1. Subtle hazy opacities in the bilateral lung bases, right greater than left, may represent atelectasis versus infiltrate. 2. Cardiomegaly without congestive heart failure. Electronically signed by: Derek Anaya MD 12/29/2017 9:34 PM CDT
[2017-12-29] MEDS ORDERED: IBUPROFEN 200 MG TAB PO ONE (21:40)
[2017-12-29] MEDS ORDERED: cefTRIAXone SODIUM 2 GM in SODIUM CHL 0.9% 100ML MINI-BAG 100 ML IVPB ONE (21:47)
[2017-12-29] MEDS ORDERED: SODIUM CHL 0.9% 100ML MINI-BAG 100 ML IVPB ONE (22:04)
--- NOTE | 2017-12-29 22:35 | HP ---
SUPERVISING PHYSICIAN: Gera Nathan MD CHIEF COMPLAINT: Fever, chills. HISTORY OF PRESENT ILLNESS: Mr. Tejada is an 87 year-old male patient who presented to the Emergency Room today with a complaint of fever. His noted that he had been running a fever since yesterday of 101.5 and on admission it was noted his temperature was 103.4. The patient does have a history of dementia but is very pleasant and his reports that he is normally confused but she notes over the last 24 hours he has been increasingly more confused, especially with the fevers. He denies having any cough or other complaints. His also notes he has not been drinking much as in fluids and she has had difficulty keeping him hydrated. The patient has a history of atrial fibrillation and is on Eliquis. He did take one Advil last night for his fever which did improve and they both deny any ill contacts and have not received their flu shot for the year. Review of his past medical history notes he does have Lewy body dementia, atrial fibrillation and hypertension but was denying any headache, neck pain or vision changes. Laboratory studies on admission showed a normal white count of 6,900 but a left shift. Chemistries showed increased creatinine of 1.42 with a BUN of 32. All electrolytes were normal. Lactic acid 1.5. Liver functions were essentially within normal limits. Urinalysis just showed a trace intact blood with 5 to 10 RBCs seen on exam with no bacteria or WBCs noted. He had a group-H strep and an influenza A-B by PCR which all 3 were negative. A chest x-ray, single-view, was completed in the Emergency Room and per radiology interpretation showed hazy opacities in the bilateral lung bases, right greater than left which could represent atelectasis versus infiltrate. There was note of cardiomegaly but no congestive heart failure. Dr. Noguera, Emergency Room physician, requested the patient be admitted with concerns for developing community acquired pneumonia with a fever and given his advanced age and comorbidities. The patient is now going to be admitted to the medical/surgical floor in stable condition at time of admission. PAST MEDICAL HISTORY: 1. Atrial fibrillation on Eliquis. 2. Hyperlipidemia. 3. Osteoarthritis. 4. Lewy Body Dementia. 5. Hypertension. PAST SURGICAL HISTORY: 1. Total right knee replacement. 2. Multiple colonoscopies. 3. Pacemaker insertion. 4. Hernia repair times 2. HOME MEDICATIONS: 1. Eliquis 5 mg b.i.d. 2. Tenormin 25 mg daily. 3. Depakote 500 mg b.i.d. 4. Seroquel 100 mg at bedtime. 5. Memantine 10 mg b.i.d. ALLERGIES: ATORVASTATIN AND PROPOXYPHENE FAMILY HISTORY: His father of a myocardial infarction at age 56. His mother at age 75 of unknown causes. His sisters have coronary artery disease. SOCIAL HISTORY: The patient lives in [place], [place]. 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 He is . He has three children. He denies any alcohol, tobacco or illicit drug use. REVIEW OF SYSTEMS: CONSTITUTIONAL: Patient had dementia and is denying any significant complaints but is noting multiple complaints with review of systems probably from her but noted for fevers, chills and general malaise. HEENT: She denied he had any ear pain, sore throat, nasal congestion. RESPIRATORY: Denied any significant cough, shortness of breath or wheezing. CARDIAC: Denies chest pain, palpitations or edema. GASTROINTESTINAL: Denied abdominal pain, nausea, vomiting. GENITOURINARY: Denied hematuria, dysuria or polyuria or other urinary symptoms. NEUROLOGIC: As noted in history of present illness, Lewy Body Dementia with confusion more so from baseline during fever but once fever is gone, she reports that his mentation is more at baseline. She denies any seizures, syncopal episodes, ataxia, just generalized weakness. PHYSICAL EXAMINATION: VITAL SIGNS: Temperature on admission was 103.6, pulse 107, blood pressure 149/ 79, respirations 20, saturation 96% on room air. Admission weight 86. kg. GENERAL: On admission to the medical/surgical floor, the patient is resting comfortably, very pleasant, appears to be in no acute distress. He is well- nourished, mildly dehydrated. His is at bedside. HEENT: Tympanic membranes clear bilaterally with oral mucosa showing to be pink, moist but no lesions. NECK: Supple, non-tender, full range of motion. No jugular venous distention. CHEST: Lung sounds fairly clear but diminished towards the bases with no obvious wheezing at time of admission, no rhonchi. CARDIOVASCULAR: Slightly irregular rate and rhythm with 3/6 systolic murmur. ABDOMEN: Soft, non-tender with positive bowel sounds. EXTREMITIES: No cyanosis, clubbing, or edema. Moves all extremities ad jose with no difficulty. NEUROLOGIC: Cranial nerves II through XII are grossly intact. Facial features were symmetrical. Extraocular movements within normal limits. No notable nystagmus. He was alert x3. LABORATORY: White count 6,900 with platelet count 107,000. Differential did show early left shift. Hemoglobin 15.9, hematocrit 47.3. Chemistries showed normal electrolytes. BUN elevated at 32, creatinine 1.42, blood sugar 125. Lactic 1.5. Bilirubin only slightly elevated. All other liver enzymes within normal limits. Urinalysis showed trace intact blood with 5 to 10 RBCs. Group A strep screen was negative. Influenza A and B by PCR negative. Blood cultures pending. Sputum culture pending. ASSESSMENT: 1. Febrile illness with concerns for developing community acquired pneumonia with multiple underlying comorbidities. 2. Renal insufficiency due to a prerenal azotemic state requiring initiation of IV fluids. 3. Microhematuria, uncertain etiology. 4. History of atrial fibrillation on Eliquis and pacemaker implanted with current ventricular rate controlled. 5. Lewy Body Dementia. PLAN: The patient is going to be admitted to the medical/surgical floor, ongoing treatment of his fever with concerns of developing community acquired pneumonia. He was given Rocephin initially in the Emergency Department and needs to be follow with azithromycin. He will be on aggressive bronchial hygiene therapy with Xopenex treatments and albuterol treatments as needed p.r.n.. Given he has a history of atrial fibrillation, at this point we will hold off on any chest progressive therapy. Will start him on some IV fluids, half normal saline with 20 of potassium at 80 an hour to hopefully rehydrate and improve his renal function. Will anticipate his length of stay to be at least 2 to 3 days. He is already on Eliquis for DVT prophylaxis which will be continued. Will update his home medications and verify those and resume those as appropriate. Until the patient is showing to be afebrile for at least 24 hours and showing clinical stability, will continue to treat and monitor as needed. #[id number] [facility]
[2017-12-29] MEDS ORDERED: ACETAMINOPHEN 325 MG TAB PO PRN (23:06)
[2017-12-29] MEDS ORDERED: ALBUTEROL SULFATE 2.5 MG/3 ML VIAL NEB PRN (23:06)
[2017-12-29] MEDS: IV SET AND CAP CHANGE INJ INJ SCH (23:30)
[2017-12-30] MEDS ORDERED: LEVALBUTEROL NEBS 1.25 MG/3 ML VIAL INH SCH
[2017-12-30] MEDS ORDERED: AZITHROMYCIN IV 500 MG VIAL IVPB ONE ×2 (00:28→19:27)
[2017-12-30] MEDS ORDERED: SODIUM CHLORIDE 0.9% 250ML 250 ML ONE ×2 (00:28→19:27)
[2017-12-30] MEDS ORDERED: QUETIAPINE FUMARATE 100 MG PO SCH (00:35)
[2017-12-30] MEDS ORDERED: ATENOLOL 25 MG PO SCH (00:35)
[2017-12-30] MEDS: AZITHROMYCIN IV 500 MG in SODIUM CHLORIDE 0.9% 250ML 250 ML IVPB SCH ×2 (00:41→23:19)
[2017-12-30] MEDS: SODIUM CHLORIDE 0.9% (FLUSH) 10 ML SYG IV PRN ×2 (00:41→23:19)
[2017-12-30] MEDS: KCL 20MEQ/0.45% NS 1,000 ML IVS PRN (00:42)
[2017-12-30] MEDS ORDERED: NON-FORMULARY MEDICATION 1 EA MIS (Apixaban [Eliquis] 5 MG) PO SCH (00:45)
[2017-12-30] MEDS ORDERED: DIVALPROEX SODIUM 500 MG PO SCH (00:45)
[2017-12-30] MEDS ORDERED: DIVALPROEX SODIUM ER 250 MG TAB PO ONE ×2 (01:14→07:17)
[2017-12-30] MEDS ORDERED: APIXABAN 2.5 MG TAB PO ONE ×3 (01:14→07:17)
[2017-12-30] MEDS ORDERED: QUEtiapine FUMARATE 100 MG TAB ONE (01:14)
[2017-12-30] MEDS ORDERED: ATENOLOL 25 MG TAB ONE ×2 (01:14→07:17)
[2017-12-30] MEDS: MEMANTINE 10 MG TAB PO SCH ×3 (01:28→20:59)
[2017-12-30] MEDS: DEPAKOTE 500 MG PO SCH ×3 (01:28→20:59)
--- NOTE | 2017-12-30 05:47 | RAD ---
EXAM DESCRIPTION: AP view of the chest CLINICAL HISTORY:87 years Male, Pneumonia Comparison: December 29, 2017 8:55 PM FINDINGS: Stable bibasilar pulmonary opacities. Chronic interstitial lung markings. Cardiomegaly. Pacemaker from a left subclavian approach. IMPRESSION: No significant change from prior study. Electronically signed by: Roshan Norton DO 12/30/2017 5:46 AM CDT
[2017-12-30] MEDS ORDERED: SODIUM CHL 0.9% 50ML MIN-BAG+ 50 ML IVPB ONE (07:17)
[2017-12-30] MEDS ORDERED: cefTRIAXone SODIUM 1 GM VIAL ONE (07:18)
[2017-12-30] MEDS: LEVALBUTEROL NEBS 1.25 MG/3 ML VIAL NEB SCH ×2 (08:33→15:29)
[2017-12-30] MEDS: cefTRIAXone SODIUM 1 GM in SODIUM CHL 0.9% 50ML MIN-BAG+ 50 ML IVPB SCH (09:28)
[2017-12-30] MEDS: APIXABAN 2.5 MG TAB PO SCH ×2 (09:31→20:59)
[2017-12-30] MEDS: ATENOLOL 25 MG TAB PO SCH (09:31)
[2017-12-30] MEDS: QUEtiapine FUMARATE 100 MG TAB PO SCH (20:59)
[2017-12-30] MEDS: IBUPROFEN 400 MG TAB PO PRN (21:31)
--- NOTE | 2017-12-30 21:51 | PN ---
DATE: 12/30/17 SUPERVISING PHYSICIAN: Spenser Bueno M.D. SUBJECTIVE: The patient is eating breakfast this morning. He notes that he feels fairly well this morning. He had a low-grade fever through the night and still had some episodes of worsening confusion, but easily reorients with his family. He denied any chest pains other than chest wall soreness which is reproducible with deep inspiratory effort or pushing on his left side of his chest which was due to a recent fall. OBJECTIVE: VITAL SIGNS: T max 99.8, pulse 78, blood pressure 114/70, respirations 16, satting 93% on room air. GENERAL: The patient is in no acute distress, resting comfortably, visiting with family. He is alert. CHEST: Lung sounds are diminished. There is some rhonchi heard bilaterally but more prominent on the left. No wheezing. HEART: Regular rate and rhythm. ABDOMEN: Soft, non-tender. Positive bowel sounds. EXTREMITIES: Without any clubbing, cyanosis or edema. NEUROLOGIC: He is alert and oriented to family and place but not time and is, according to family, at his normal baseline mental status. LABORATORY: White count remains within normal limits at 9,500 today with 14.8 hemoglobin, 44.1 hematocrit, platelet count is 84,000. Differential today does show a left shift. Chemistries show normal electrolytes, BUN 32, creatinine is up slightly at 1.59, glucose 107. MICROBIOLOGY: Blood cultures are pending and negative currently. Group A Streptococcus culture is pending. Flu swab by PCR was negative on admission. RADIOLOGY: Chest x-ray single view chest this morning per radiology interpretation shows no significant change from prior study showing stable bibasilar pulmonary opacities with chronic interstitial lung markings. ASSESSMENT: 1. Community acquired pneumonia bilateral presentation on radiographic studies with the patient having a fever complicated by multiple underlying co- morbidities requiring initiation of parenteral antibiotics and fluids. 2. Renal insufficiency likely a prerenal azotemic state requiring ongoing fluid management. 3. Microhematuria, uncertain etiology. 4. History of atrial fibrillation on Eliquis and pacemaker implantation with current ventricular rate controlled. 5. Lewy Body Dementia. PLAN: Will continue with treatment with antibiotics with azithromycin and Rocephin, and bronchial hygiene. Will continue with IV fluids as he is not having adequate intake at this point and currently will have him on half normal saline with 20 of potassium to run at 80 an hour. Will monitor blood cultures and await his Group A Streptococcus culture as well to further target antibiotic therapy. Will plan to repeat labs in the morning for BMP as CBC has been fairly stable. Will hold off on a chest x-ray. Will anticipate at least another 24 hours of more aggressive pulmonary hygiene and parenteral antibiotics , and hopefully be able to transition him to a p.o. medication for outpatient management later tomorrow or Sunday. Until that point will continue to monitor and treat appropriately. [facility][id number] [facility]
[2017-12-31] MEDS: LEVALBUTEROL NEBS 1.25 MG/3 ML VIAL NEB SCH ×4 (00:11→23:48)
[2017-12-31] MEDS: KCL 20MEQ/0.45% NS 1,000 ML IVS PRN ×2 (03:56→18:00)
[2017-12-31] MEDS: APIXABAN 2.5 MG TAB PO SCH ×2 (09:32→21:30)
[2017-12-31] MEDS: DEPAKOTE 500 MG PO SCH ×2 (09:32→21:30)
[2017-12-31] MEDS: MEMANTINE 10 MG TAB PO SCH ×2 (09:32→21:30)
[2017-12-31] MEDS: ATENOLOL 25 MG TAB PO SCH (09:32)
[2017-12-31] MEDS ORDERED: SODIUM CHL 0.9% 50ML MIN-BAG+ 50 ML IVPB ONE (11:13)
[2017-12-31] MEDS ORDERED: cefTRIAXone SODIUM 1 GM VIAL ONE (11:14)
[2017-12-31] MEDS: cefTRIAXone SODIUM 1 GM in SODIUM CHL 0.9% 50ML MIN-BAG+ 50 ML IVPB SCH (11:21)
--- NOTE | 2017-12-31 12:09 | RAD ---
EXAM DESCRIPTION: Chest,2 Views CLINICAL HISTORY: fever COMPARISON: Previous study December 30, 2017 TECHNIQUE: PA/lateral FINDINGS: There is no acute appearing cardiac or pulmonary abnormality. Heart size is large with prominent central pulmonary vascularity. No pleural effusion or pneumothorax. Lungs are clear with no consolidating infiltrate. Lateral view shows intact sternum and T-spine. Slight blunting of the left costophrenic angle. Cardiac pacer is in place with electrode lead tip in the region of the right ventricular apex. IMPRESSION: Large heart without congestive failure. Electronically signed by: Les Diaz MD 12/31/2017 12:07 PM CDT
--- NOTE | 2017-12-31 13:26 | PN ---
SUPERVISING PHYSICIAN: Ronnie Nathan MD DATE: 12/31/17 SUBJECTIVE: The patient is without distress at this time, really not talking a whole lot. His was at bedside. I discussed with her as well. OBJECTIVE: VITAL SIGNS: Blood pressure 114/77. Heart rate 74. Respiratory rate 20. Temperature 96.3. Oxygen saturation 94%. However he did have a spike of fever of 101.7 last night at around 2200. NEUROLOGIC: The patient is unchanged. LUNGS: Clear to auscultation bilaterally. CARDIOVASCULAR: Irregular rate and rhythm. Normal S1, S2. He does have a systolic murmur. ABDOMEN: Soft. Positive bowel sounds. EXTREMITIES: Pulses 2+. Capillary refill is less than 2 seconds. LABORATORY: Improvement in BUN and creatinine at 24 and 1.18 respectively. ASSESSMENT: 1. Community acquired pneumonia. 2. Acute on chronic renal disease. 3. Microhematuria. 4. History of atrial fibrillation on chronic Eliquis therapy. 5. Lewy body dementia. PLAN: We will continue current antibiotics. His chest x-ray is really not impressive. However, he has not had a two-view. I am going to go ahead and order a two-view chest x-ray to see if his has a retrocardiac infiltrate. I do not have any other significant reason for him to be having fever. However, the fever is less intense and less frequent, so we will continue the current antibiotics as they are. I discussed with his who is in agreement at this time. [facility][id number] [facility]
[2017-12-31] MEDS ORDERED: SODIUM CHLORIDE 0.9% 250ML 250 ML ONE ×2 (19:51→23:26)
[2017-12-31] MEDS ORDERED: AZITHROMYCIN IV 500 MG VIAL IVPB ONE (19:52)
[2017-12-31] MEDS: IBUPROFEN 400 MG TAB PO PRN (21:30)
[2017-12-31] MEDS: QUEtiapine FUMARATE 100 MG TAB PO SCH (21:30)
[2017-12-31] MEDS: SODIUM CHLORIDE 0.9% (FLUSH) 10 ML SYG IV PRN (23:38)
[2017-12-31] MEDS: AZITHROMYCIN IV 500 MG in SODIUM CHLORIDE 0.9% 250ML 250 ML IVPB SCH (23:38)
[2018-01-01] MEDS ORDERED: SODIUM CHL 0.9% 50ML MIN-BAG+ 0 ML IVPB ONE (07:21)
[2018-01-01] MEDS ORDERED: cefTRIAXone SODIUM 1 GM VIAL ONE (07:21)
[2018-01-01] MEDS: LEVALBUTEROL NEBS 1.25 MG/3 ML VIAL NEB SCH ×2 (07:34→16:29)
[2018-01-01] MEDS ORDERED: VANCOMYCIN PER PHARMACY INJ SCH (08:30)
[2018-01-01] MEDS: APIXABAN 2.5 MG TAB PO SCH ×2 (08:58→21:00)
[2018-01-01] MEDS: ATENOLOL 25 MG TAB PO SCH (08:58)
[2018-01-01] MEDS: MEMANTINE 10 MG TAB PO SCH ×2 (08:58→21:01)
[2018-01-01] MEDS: DEPAKOTE 500 MG PO SCH ×2 (08:59→21:00)
[2018-01-01] MEDS ORDERED: SODIUM CHL 0.9% 100ML MINI-BAG 100 ML IVPB ONE ×3 (09:08→20:42)
[2018-01-01] MEDS ORDERED: AMPICILLIN & SULBACTAM SODIUM 3 GM VIAL ONE ×3 (09:08→20:42)
[2018-01-01] MEDS: AMPICILLIN & SULBACTAM SODIUM 3 GM in SODIUM CHL 0.9% 100ML MINI-BAG 100 ML IVPB SCH ×3 (09:12→21:00)
--- NOTE | 2018-01-01 10:43 | PN ---
SUPERVISING PHYSICIAN: Gera Nathan MD DATE: 01/01/18 SUBJECTIVE: The patient is sitting up in the chair without any significant complaints at this time. He seems to be more awake than he was yesterday. OBJECTIVE: VITAL SIGNS: Blood pressure 105/68. Heart rate 69. Respiratory rate 18. Temperature 97.5. He has been afebrile for the last 24 hours. Oxygen saturation 98%. GENERAL: Mr. Tejada is a 87-year-old male patient who is in no active distress currently. NEUROLOGIC: Alert, chronically confused due to dementia. LUNGS: Clear to auscultation bilaterally. CARDIOVASCULAR: Irregular rate and rhythm. Normal S1, S2. Positive for systolic murmur. ABDOMEN: Soft. Positive bowel sounds. EXTREMITIES: Lower extremities 2+ pules, capillary refill less than 2 seconds. He does have an area that is marked over his left lower extremity with some red streaking which is barely detectable at this time and reportedly was more red before I visualized it. ASSESSMENT: 1. Community associated pneumonia. 3. Acute on chronic renal disease. 4. Microhematuria. 5. History of atrial fibrillation on chronic Eliquis therapy. 6. Lewy Body dementia. 7. Gram positive cocci in chains and pairs in blood cultures. PLAN: I am going to change his antibiotics from Rocephin to Unasyn given the positive presumed strep in his blood. I will also give him a dose of vancomycin given the lower extremity erythema. He seems to be progressing and can likely go home tomorrow if he continues to progress in a positive manner and could go home on .Augmentin. [facility][id number] [facility]
[2018-01-01] MEDS: KCL 20MEQ/0.45% NS 1,000 ML IVS PRN (10:58)
[2018-01-01] MEDS: VANCOMYCIN HCL INJ 1,750 MG in SODIUM CHLORIDE 0.9% 500ML 500 ML IVPB SCH (11:00)
[2018-01-01] MEDS ORDERED: SODIUM CHLORIDE 0.9% 500ML 500 ML ONE (12:49)
[2018-01-01] MEDS ORDERED: VANCOMYCIN HCL INJ 1,000 MG VIAL IVPB ONE (12:50)
[2018-01-01] MEDS ORDERED: AZITHROMYCIN IV 500 MG VIAL IVPB ONE (20:45)
[2018-01-01] MEDS ORDERED: SODIUM CHLORIDE 0.9% 250ML 250 ML ONE (20:45)
[2018-01-01] MEDS: QUEtiapine FUMARATE 100 MG TAB PO SCH (21:00)
[2018-01-01] MEDS: SODIUM CHLORIDE 0.9% (FLUSH) 10 ML SYG IV PRN (21:01)
[2018-01-02] MEDS: IV SET AND CAP CHANGE INJ INJ SCH (00:01)
[2018-01-02] MEDS ORDERED: SODIUM CHL 0.9% 100ML MINI-BAG 100 ML IVPB ONE ×4 (00:23→20:12)
[2018-01-02] MEDS ORDERED: AMPICILLIN & SULBACTAM SODIUM 3 GM VIAL ONE ×4 (00:23→20:13)
[2018-01-02] MEDS: AMPICILLIN & SULBACTAM SODIUM 3 GM in SODIUM CHL 0.9% 100ML MINI-BAG 100 ML IVPB SCH ×4 (02:26→20:47)
[2018-01-02] MEDS: LEVALBUTEROL NEBS 1.25 MG/3 ML VIAL NEB SCH ×3 (08:35→17:19)
[2018-01-02] MEDS: DEPAKOTE 500 MG PO SCH ×2 (08:58→20:48)
[2018-01-02] MEDS: APIXABAN 2.5 MG TAB PO SCH ×2 (08:58→20:48)
[2018-01-02] MEDS: ATENOLOL 25 MG TAB PO SCH (08:59)
[2018-01-02] MEDS ORDERED: SODIUM CHLORIDE 0.9% 500ML 500 ML ONE (09:05)
[2018-01-02] MEDS ORDERED: VANCOMYCIN HCL INJ 1,000 MG VIAL IVPB ONE ×2 (09:05→09:36)
[2018-01-02] MEDS: MEMANTINE 10 MG TAB PO SCH ×2 (09:06→20:48)
[2018-01-02] MEDS: VANCOMYCIN HCL INJ 1,750 MG in SODIUM CHLORIDE 0.9% 500ML 500 ML IVPB SCH (09:37)
[2018-01-02] MEDS: TAMSULOSIN 0.4 MG CAP PO SCH (09:37)
[2018-01-02] MEDS: guaiFENesin ER TAB 600 MG TAB PO SCH ×2 (12:17→20:48)
--- NOTE | 2018-01-02 13:52 | PN ---
SUPERVISING PHYSICIAN: Ronnie Nathan MD DATE: 01/02/18 SUBJECTIVE: The patient is lying in bed. He did not sleep all night, but mostly due to having to urinate every 10 to 15 minutes. He has previously been on Flomax and Proscar, but had been taken off it several months ago trying to eliminate some of his medications. He has been miserable since then and requested a catheter be placed. He also would like to restart some of those medications. He also has some shortness of breath, but mostly with exertion. Otherwise, he denies any chest pain, nausea, vomiting, diarrhea. OBJECTIVE: VITAL SIGNS: Afebrile. Heart rate 75. Blood pressure 136/71. Respiratory rate 22. O2 saturation 94% on room air. RESPIRATORY: A few scattered rhonchi throughout, no wheezing or crackles noted. CARDIAC: Regular rate and rhythm. GASTROINTESTINAL: Abdomen is soft, nondistended, nontender. Bowel sounds are positive. EXTREMITIES: No cyanosis, clubbing or edema except the area of erythema on his leg is very pale pink with no warmth or fluctuance. NEUROLOGIC: Awake, alert and oriented times three. LABORATORY: WBCs 5.2 with hemoglobin 12.8, hematocrit 37.7, platelet count 105. Electrolytes are within normal limits with the exception of BUN slightly elevated at 19. Sputum culture is pending. His micro report for his blood shows preliminary gram positive cocci in the aerobic culture with beta Streptococcus group B identified. No sensitivity has been returned. Preliminary blood cultures show no growth after 3 days. All other labs and films have been reviewed via the EMR. ASSESSMENT: 1. Community associated pneumonia. 3. Acute on chronic renal disease. 4. Microhematuria. 5. History of atrial fibrillation on chronic Eliquis therapy. 6. Lewy body dementia. 7. Gram positive cocci in chains, positive for beta Streptococcus in the aerobic blood culture. PLAN: We will continue to monitor his culture and sensitivities. I have also ordered aggressive pulmonary hygiene as well as physical therapy to evaluate safety for going home. We will hold on his labs tomorrow. He has had a Nicole catheter placed and that should be removed in the next 24 to 48 hours. I have also started him on Flomax and we will continue to monitor the patient closely and follow as needed. Dr. Nathan is the collaborating physician and available for consultation. [facility][id number] [facility]
[2018-01-02] MEDS ORDERED: SODIUM CHLORIDE 0.9% 250ML 250 ML ONE (20:12)
[2018-01-02] MEDS ORDERED: AZITHROMYCIN IV 500 MG VIAL IVPB ONE (20:13)
[2018-01-02] MEDS: SODIUM CHLORIDE 0.9% (FLUSH) 10 ML SYG IV PRN ×2 (20:47→23:23)
[2018-01-02] MEDS: QUEtiapine FUMARATE 100 MG TAB PO SCH (20:48)
[2018-01-02] MEDS: AZITHROMYCIN IV 500 MG in SODIUM CHLORIDE 0.9% 250ML 250 ML IVPB SCH ×3 (23:22)
[2018-01-03] MEDS ORDERED: AMPICILLIN & SULBACTAM SODIUM 3 GM VIAL ONE ×4 (02:46→19:52)
[2018-01-03] MEDS ORDERED: SODIUM CHL 0.9% 100ML MINI-BAG 100 ML IVPB ONE ×4 (02:46→19:51)
[2018-01-03] MEDS: AMPICILLIN & SULBACTAM SODIUM 3 GM in SODIUM CHL 0.9% 100ML MINI-BAG 100 ML IVPB SCH ×4 (02:52→20:32)
[2018-01-03] MEDS: LEVALBUTEROL NEBS 1.25 MG/3 ML VIAL NEB SCH ×4 (08:00→23:50)
[2018-01-03] MEDS: APIXABAN 2.5 MG TAB PO SCH ×2 (08:20→20:34)
[2018-01-03] MEDS: TAMSULOSIN 0.4 MG CAP PO SCH (08:20)
[2018-01-03] MEDS: DEPAKOTE 500 MG PO SCH ×2 (08:21→20:34)
[2018-01-03] MEDS: ATENOLOL 25 MG TAB PO SCH (08:21)
[2018-01-03] MEDS: guaiFENesin ER TAB 600 MG TAB PO SCH ×2 (08:21→20:34)
[2018-01-03] MEDS: MEMANTINE 10 MG TAB PO SCH ×2 (08:21→20:34)
[2018-01-03] MEDS: FINASTERIDE 5 MG TAB PO SCH (09:25)
[2018-01-03] MEDS ORDERED: SODIUM CHLORIDE 0.9% 500ML 500 ML ONE (09:44)
[2018-01-03] MEDS ORDERED: VANCOMYCIN HCL INJ 1,000 MG VIAL IVPB ONE (09:44)
[2018-01-03] MEDS: VANCOMYCIN HCL INJ 1,750 MG in SODIUM CHLORIDE 0.9% 500ML 500 ML IVPB SCH (09:59)
--- NOTE | 2018-01-03 13:49 | PN ---
SUPERVISING PHYSICIAN: Ronnie Nathan MD DATE: 01/03/18 SUBJECTIVE: The patient is lying in bed. He has no complaints at this time. He still gets slightly short of breath and he is weak, but denies chest pain, nausea, vomiting, diarrhea. He would like to keep his Nicole catheter because he gets much better rest with the catheter. OBJECTIVE: VITAL SIGNS: Afebrile. Heart rate 73. Blood pressure 126/73. Respiratory rate 16. O2 saturation 974%. RESPIRATORY: A few scattered rhonchi, slightly diminished at the bases. No wheezing noted. CARDIAC: Regular rate and rhythm. GASTROINTESTINAL: Abdomen is soft, nondistended, nontender. Bowel sounds are positive. EXTREMITIES: The area of erythema on his left lower leg is very pale pink. There is no warmth or fluctuance. It has improved since yesterday. It is not tender. NEUROLOGIC: Awake, alert. LABORATORY: Final sputum culture shows oropharyngeal contamination. 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 Other than the aerobic blood culture, the other blood cultures are negative. All other labs and films have been reviewed via the EMR. ASSESSMENT: 1. Community associated pneumonia, slowly improving. 2. Acute on chronic renal disease. 3. Microhematuria. 4. History of atrial fibrillation on chronic Eliquis therapy. 5. Lewy body dementia. 6. Gram positive cocci in chains, positive for beta Streptococcus in the aerobic blood culture. PLAN: We will continue present supportive care. We will continue with good pulmonary hygiene. We will also continue with his physical therapy. At the patient's request, we will leave his Nicole catheter as he is a DNR on hospice out of the hospital and he asked that the Nicole catheter remain in place for comfort issues. Hopefully he can go home tomorrow. We will hold on any lab for now. He can followup as needed. #[id number] [facility]
[2018-01-03] MEDS ORDERED: SODIUM CHLORIDE 0.9% 250ML 250 ML ONE (19:51)
[2018-01-03] MEDS ORDERED: AZITHROMYCIN IV 500 MG VIAL IVPB ONE (19:52)
[2018-01-03] MEDS: SODIUM CHLORIDE 0.9% (FLUSH) 10 ML SYG IV PRN (20:33)
[2018-01-03] MEDS: QUEtiapine FUMARATE 100 MG TAB PO SCH (20:34)
[2018-01-03] MEDS: AZITHROMYCIN IV 500 MG in SODIUM CHLORIDE 0.9% 250ML 250 ML IVPB SCH (23:35)
[2018-01-03] MEDS: IBUPROFEN 400 MG TAB PO PRN (23:41)
[2018-01-04] MEDS ORDERED: SODIUM CHL 0.9% 100ML MINI-BAG 100 ML IVPB ONE ×2 (01:43→06:43)
[2018-01-04] MEDS ORDERED: AMPICILLIN & SULBACTAM SODIUM 3 GM VIAL ONE ×2 (01:43→06:44)
[2018-01-04] MEDS: AMPICILLIN & SULBACTAM SODIUM 3 GM in SODIUM CHL 0.9% 100ML MINI-BAG 100 ML IVPB SCH ×2 (02:40→08:14)
[2018-01-04] MEDS: APIXABAN 2.5 MG TAB PO SCH (08:14)
[2018-01-04] MEDS: FINASTERIDE 5 MG TAB PO SCH (08:14)
[2018-01-04] MEDS: MEMANTINE 10 MG TAB PO SCH (08:15)
[2018-01-04] MEDS: TAMSULOSIN 0.4 MG CAP PO SCH (08:15)
[2018-01-04] MEDS: guaiFENesin ER TAB 600 MG TAB PO SCH (08:15)
[2018-01-04] MEDS: ATENOLOL 25 MG TAB PO SCH (08:15)
[2018-01-04] MEDS: DEPAKOTE 500 MG PO SCH (08:16)
[2018-01-04] MEDS: LEVALBUTEROL NEBS 1.25 MG/3 ML VIAL NEB SCH (08:39)
[2018-01-04] MEDS ORDERED: VANCOMYCIN HCL INJ 1,000 MG VIAL IVPB ONE ×2 (10:43→10:58)
[2018-01-04] MEDS ORDERED: SODIUM CHLORIDE 0.9% 500ML 0 ML ONE (10:43)
[2018-01-04] MEDS ORDERED: SODIUM CHLORIDE 0.9% 250ML 250 ML ONE (10:58)
[2018-01-04] MEDS ORDERED: VANCOMYCIN HCL INJ 1,000 MG in SODIUM CHLORIDE 0.9% 250ML 250 ML IVPB SCH (11:00)
[2018-01-04] MEDS: VANCOMYCIN HCL INJ 1,750 MG in SODIUM CHLORIDE 0.9% 500ML 500 ML IVPB SCH (11:03)
[2018-01-04 11:09] VITALS: BP 105/55; TEMP 97.6; O2SAT 97
[2018-01-04] MEDS ORDERED: DOXAZOSIN MESYLATE 2 MG TAB PO SCH (21:00)
--- NOTE | 2018-01-07 15:13 | DS ---
SUPERVISING PHYSICIAN: Ronnie Nathan MD DISCHARGE DIAGNOSIS: 1. Community associated pneumonia, continuing to improve. 2. Acute on chronic renal disease. 3. Microhematuria. 4. History of atrial fibrillation on chronic Eliquis therapy. 5. Lewy body dementia. 6. Gram positive cocci in chains, positive for beta Streptococcus in the aerobic blood culture. HISTORY OF PRESENT ILLNESS: This is an 87-year-old male patient who seen in the Emergency Room on the date of admission with a complaint of fever. His noted that he had been running a fever since the previous day of 101.5 and it had gotten as high as 103.4. The patient does have a history of dementia and he is normally confused, but very pleasant. Over the previous 24 hours prior to admission, he had increasing confusion. There were no complaints of any cough or upper respiratory symptoms, but his noted he had not been drinking as many fluids as he normally does and she felt she was having a difficult time keeping him hydrated. The patient has a history of atrial fibrillation and is on Eliquis. He does have Lewy body dementia, atrial fibrillation and hypertension. He was placed in the hospital for bilateral pneumonia. HOSPITAL COURSE: He was given Rocephin in the Emergency Room and additionally he was placed on azithromycin. He was given albuterol treatments as well as aggressive pulmonary hygiene. His Eliquis therapy was continued. He slowly improved during his hospital stay. His chest x-ray improved. During the course of his stay, his aerobic blood cultures showed beta Streptococcus group B. It was sensitive to Rocephin, penicillin as well as vancomycin. He was continued on the Rocephin and the azithromycin was discontinued and changed to Unasyn. His lab showed a stable white count of 6.9 on admission. It went as high as 9.5 and on discharge it is 5.2. His hemoglobin and hematocrit are stable today at 12.8 and 37.7. His electrolytes were basically within normal limits with the exception that his BUN was slightly elevated at 19. His urinalysis was positive for hematuria but otherwise within normal limits. His sputum culture showed no growth. It is to be noted that two days prior to his discharge, he had been up the previous night with frequent urination and his said he was exhausted. A Nicole catheter was placed and the patient rested quietly after that. At some point in time over the last several months, his doxazosin and finasteride had been discontinued, most likely at a rehab facility. He had been put on those two medications by Dr. Valdez, urologist , many years ago. Those medications were restarted. We started his doxazosin at 1 mg at bedtime and his Proscar was 5 mg daily. I am not sure what his original dosing was, but he can have those adjusted at Dr. Nathan's as needed at his followup appointment. The patient will be discharged home today in stable condition. DISCHARGE PLAN: The patient will be discharged home in stable condition. He has [facility]. He is to followup with Dr. Nathan in one to two weeks. He is to resume his previous diet and his previous medications. He will be sent home on Augmentin, azithromycin, doxazosin and finasteride in addition. He is to return to the Hospital or call Dr. Nathan's office for any problems or complications. DISCHARGE MEDICATIONS: 1. Atenolol. 2. Seroquel. 3. Namenda. 4. Eliquis. 5. Metamucil. 6. Depakote. 7. Azithromycin. 8. Doxazosin. 9. Finasteride. 10. Augmentin. [facility][id number] [facility]
== END 2018-01-04 13:16 | disposition home health service (06) | DRG 871 ==
LOC: ER 20:33 → MS 22:34 → OBSVTOIN 22:34
PROVIDERS: ADMIT Nurse Practitioner Family; ATTEND Nurse Practitioner Acute Care
DX: A41.9 Sepsis, unspecified organism (principal); J18.9 Pneumonia, unspecified organism; N17.9 Acute kidney failure, unspecified; E86.0 Dehydration; N18.9 Chronic kidney disease, unspecified; I48.91 Unspecified atrial fibrillation; G31.83 Neurocognitive disorder with Lewy bodies; F02.80 Dementia in other diseases classified elsewhere, unspecified severity, without behavioral disturbance, psychotic disturbance, mood disturbance, and anxiety; R31.29 Other microscopic hematuria; I12.9 Hypertensive chronic kidney disease with stage 1 through stage 4 chronic kidney disease, or unspecified chronic kidney disease; E78.5 Hyperlipidemia, unspecified; M19.90 Unspecified osteoarthritis, unspecified site; Z66 Do not resuscitate; Z96.651 Presence of right artificial knee joint; Z79.02 Long term (current) use of antithrombotics/antiplatelets; Z95.0 Presence of cardiac pacemaker; Z79.899 Other long term (current) drug therapy; Z88.8 Allergy status to other drugs, medicaments and biological substances